=== PATIENT | female | born 1965 | race Caucasian/White ===

== ENCOUNTER 2020-02-11 14:50 | Emergency (ER) | payer OTHER ==
[~2020-02-11] VITALS: Ht 157.5 cm; Wt 81.6 kg
[2020-02-11] MEDS ORDERED: [UNRECOGNIZED DRUG - OTHER] (15:23)
== END 2020-02-11 20:34 | disposition home or self-care (01) ==
LOC: ER 14:50
DX: K59.09 Other constipation (principal); R10.12 Left upper quadrant pain